=== PATIENT | female | born 1970 | race American Indian/Alaskan Native ===

== ENCOUNTER 2017-02-20 14:50 | Emergency (ER) | payer SELFPAY ==
[2017-02-20 15:22] VITALS: BP 129/88
--- NOTE | 2017-02-20 16:06 | Emergency Department Report ---
Chief Complaint: Abdominal Pain Stated Complaint: ABDOMINAL PAIN, VOMITING,NO BILE MOVEMENT Time Seen by Provider: 02/20/17 16:06 - HPI History of Present Illness: Patient here complaining of abdominal pain to her abdomen she said it's mostly to her upper abdomen but she is having generalized pain that is 10 out of 10 and feels crampy and she feels very uncomfortable. Patient states that she vomits every day and she is having nausea. She says she was seen at [facility] last Monday which is 6 days ago for abdominal pain and had not have a bowel movement. She says she had a CT scan of the abdomen and pelvis that she was given stool softeners. She said she takes Ultram so they gave her to stool softener for that. She says she has not had a bowel movement for 5 days because of constipation. She says she has not had any relief with the stool softener she said she had a bowel movement the day when she got stool softener with says though that she hasn't had any denies any urinary burning frequency or urgency. Denies any fever or chills. Patient also said that they told her that she has a urinary tract infection and gave her ciprofloxacin and she has not take most of the ciprofloxacin because she said she cannot keep it down she has a bottle with the ciprofloxacin and most of the pills are in the bottle. - ROS Review of Systems: All systems are negative unless stated in HPI above - Exam Vital Signs: Vital Signs 02/20/17 15:16 Temperature 98.1 F Pulse Rate 96 H Respiratory 16 Rate Blood Pressure 129/88 O2 Sat by Pulse 100 Oximetry Physical Exam: Gen.: This is a 46-year-old female seeing and rubbing her abdomen with facial grimacing. She is nontoxic. Patient is morbidly obese Abdomen: Patient with very large abdomen which is adipose tissue. Tender to palpate to mid upper abdominal quadrants, audible bowel sounds. No rigidity. MSE screening note: Focused history and physical exam performed. Due to findings the following was ordered: ED Medical Decision Making - Medical Decision Making MDM: Patient screened by provider in triage area. Appropriate protocol initiated and patient to be seen in main ED by Dr. [place] Disposition for MSE Condition: Stable Instructions: Abdominal Pain (ED)
[2017-02-20 17:06] LABS: Alanine Aminotransferase 80 units/L (7-56); Albumin 3.7 g/dL (3.9-5); Albumin/Globulin Ratio 0.6 %; Alkaline Phosphatase 81 units/L (35-129); Anion Gap 16 mmol/L; BUN/Creatinine Ratio 23; Blood Urea Nitrogen 16 mg/dL (7-17); Calcium 8.8 mg/dL (8.4-10.2); Carbon Dioxide 26 mmol/L (22-30); Chloride 96.3 mmol/L (98-107); Glucose 127 mg/dL (65-100); Lipase 62 units/L (13-60); Potassium 3.7 mmol/L (3.6-5.0); Sodium 135 mmol/L (137-145)
[2017-02-20 17:11] LABS: Basophils % (Auto) 0.3 % (0.0-1.8); Eosinophils % (Auto) 0.7 % (0.0-4.3); Hematocrit 41.1 % (30.3-42.9); Hemoglobin 13.9 gm/dl (10.1-14.3); Mean Corpuscular HGB Conc 34 % (30-34); Mean Corpuscular Hemoglobin 31 pg (28-32); Mean Corpuscular Volume 91 fl (79-97); Platelet Count 380 K/mm3 (140-440); Red Blood Count 4.54 M/mm3 (3.65-5.03); Red Cell Distribution Width 12.9 % (13.2-15.2); White Blood Count 6.5 K/mm3 (4.5-11.0)
[2017-02-20 17:28] LABS: Bilirubin,Urine NEG (Negative); Blood,Urine SM (Negative); Ketones,Urine 20 mg/dL (Negative); Leukocyte Esterase,Urine NEG (Negative); Mucus,Urine 3+ /HPF; Nitrite,Urine NEG (Negative)
--- NOTE | 2017-02-20 20:16 | XRay Report ---
FINAL REPORT EXAM: XR ABDOMEN 2V HISTORY: abdominal pain, constipation upt ordered TECHNIQUE: Supine and erect views of the abdomen PRIORS: None. FINDINGS: There are numerous distended loops of small bowel containing air-fluid levels. Very little bowel gas is seen in the colon. Findings are highly suspicious for small bowel obstruction. No free air is identified. Soft tissues have no evidence for mass shadows or calcifications. The bony structures are intact. IMPRESSION: Findings highly suspicious for small bowel obstruction.
== END 2017-02-20 20:25 | disposition left against medical advice (07) ==
LOC: ED 14:50
DX: Z53.21 Procedure and treatment not carried out due to patient leaving prior to being seen by health care provider (principal)
CPT/HCPCS: 36415; 74020; 80053; 81001; 83690; 84703; 85025

== ENCOUNTER 2018-07-11 05:28 | Emergency (ER) | payer SELFPAY ==
[2018-07-11] MEDS ORDERED: MORPHINE IV ONE (07:00)
--- NOTE | 2018-07-11 07:04 | XRay Report ---
PROCEDURE: XR ANKLE 2V LT TECHNIQUE: AP and lateral views of the left ankle were obtained. HISTORY: broken ankle, ankle pain COMPARISONS: None FINDINGS: There is a trimalleolar fracture dislocation of the ankle. There is an obliquely oriented fracture of the distal fibula with lateral angulation and moderate displacement of the distal fracture fragment. There is an acute transverse fracture of the medial malleolus. The distal tibia is displaced medial relative to the fragment. There is also an obliquely oriented fracture fragment from the posterior la teral aspect of the distal tibia. The talar dome is displaced laterally relative to the distal tibial articular surface. There is soft tissue swelling around the ankle joint. There is a small plantar ca lcaneal spur. IMPRESSION: Trimalleolar fracture dislocation of the ankle.. This document is electronically signed by Matt Mariee MD., July 11 2018 07:01:49 AM ET
--- NOTE | 2018-07-11 07:07 | Emergency Department Report ---
HPI - General Chief Complaint: Extremity Injury, Lower Time Seen by Provider: 07/11/18 06:36 - HPI HPI: 48-year-old -[place] female presents to the emergency department via EMS from home with complaint of a probable left ankle fracture. She was getting dressed this morning and was putting on her pants on her right foot started slipping and she fell down onto her left leg, which had folded underneath her. She presents with swelling and an obvious deformity. She was given fentanyl in route and placed in a rudimentary splint with EMS. She has a past medical history of HIV, hepatitis C, colostomy secondary to a previous colon obstruction. ED Past Medical Hx - Past Medical History Hx HIV: Yes Additional medical history: Abd pain, Constipation, Colostomy bag, Hep-C - Surgical History Hx Cholecystectomy: Yes Additional Surgical History: Tubaligation - Social History Smoking Status: Never Smoker Substance Use Type: None - Medications Home Medications: Home Medications Medication Instructions Recorded Confirmed Last Taken Type oxyCODONE /ACETAMINOPHEN [Percocet 1 tab PO Q6HR PRN #16 tablet 07/11/18 Unknown Rx 5/325] ED Review of Systems ROS: Stated complaint: LEFT ANKLE BROKN Other details as noted in HPI Comment: All other systems reviewed and negative Constitutional: denies: chills, fever Eyes: denies: eye pain, vision change ENT: denies: ear pain, throat pain Respiratory: denies: cough, shortness of breath Cardiovascular: denies: chest pain, palpitations Gastrointestinal: denies: abdominal pain, vomiting Genitourinary: denies: dysuria, frequency Musculoskeletal: joint swelling, arthralgia. denies: back pain Skin: denies: rash, lesions Neurological: denies: headache, weakness Physical Exam - Physical Exam Vital Signs: Vital Signs 07/11/18 07/11/18 05:44 06:39 Temperature 98.7 F Pulse Rate 98 H 68 Respiratory 16 16 Rate Blood Pressure 137/76 115/60 [Left] O2 Sat by Pulse 98 100 Oximetry Physical Exam: GENERAL: The patient is well-developed well-nourished. HEENT: Normocephalic. Atraumatic. Patient has moist mucous membranes. EYES: Extraocular motions are intact. Pupils are equal and reactive to light bilaterally. NECK: Supple. Trachea is midline. CHEST/LUNGS: Clear to auscultation. There is no respiratory distress noted. HEART/CARDIOVASCULAR: Regular. There is no tachycardia. There is no obvious murmur. ABDOMEN: Abdomen is soft, nontender. Patient has normal bowel sounds. Obese habitus. SKIN: There is nonpitting swelling of the distal left lower extremity at the ankle and foot. NEURO: The patient is awake, alert, and oriented. The patient is cooperative. The patient has no focal neurologic deficits. The patient has normal speech. MUSCULOSKELETAL: There is tenderness to palpation of the circumferential left ankle. There is an obvious deformity with the left foot being laterally displaced and angulated. Pedal pulses intact. Decreased range of motion of the left foot and ankle secondary to pain. ED Course Vital Signs 07/11/18 07/11/18 05:44 06:39 Temperature 98.7 F Pulse Rate 98 H 68 Respiratory 16 16 Rate Blood Pressure 137/76 115/60 [Left] O2 Sat by Pulse 98 100 Oximetry - Consultations Consultation #1: 07/11/18 13:09 The orthopedist on-call, Dr. Rice, was contacted about the patient's trimalleolar fracture and ankle dislocation. He was nearby the emergency department and came and took a look at the patient's x-rays. Once the ankle dislocation was reduced and the ankle was splinted, he felt that the patient was safe for outpatient follow-up. - Moderate Sedation Indications: fracture/dislocation redu ASA Class: I Mallampati Airway Score: 2 Preparation: shelter monitor applied, pulse oximeter, capnometry used, supplemental O2 applied, suction/airway equipment at bedside, IV secured Ketamine: IV Ketamine Dose: 70 IV Propofol Dose (mgs): 40 Complications: none Patient Tolerated Procedure: well - Orthopedic Joint Reduction Joint #1 Consent Obtained: verbal consent Time Out Performed: Yes Side: left Joint Reduction Location: ankle Analgesia: moderate sedation Shoulder Technique Used (if applicable): traction/counter-traction Post-Reduction Neuro Exam: intact Post-Reduction Vascular Exam: intact Post Reduction X-Ray Obtained: Yes Post Reduction X-Ray Results: reduced Splint Applied: Yes Patient Tolerated Procedure: well ED Medical Decision Making - Medical Decision Making Patient slipped while trying to get dressed this morning and her leg folded underneath her and caused a trimalleolar fracture and there was an ankle dislocation. Using moderate sedation, I was able to reduce the ankle dislocation and better align the fractures. The patient was placed in a Squire splint. Vital signs stable throughout ED course. She was monitored for a while after the procedures were done until she came back out of the moderate sedation and back to her normal mentation and baseline status. The patient was given crutches and will be nonweightbearing until follow-up with the orthopedist. She was given pain medication in the orthopedic referrals. She will return to the ER with any worsening symptoms or any acute distress. - Differential Diagnosis ankle fracture, dislocation, sprain, strain, contusion Critical Care Time: No Critical care attestation.: If time is entered above; I have spent that time in minutes in the direct care of this critically ill patient, excluding procedure time. ED Disposition Clinical Impression: Trimalleolar fracture of ankle, closed Qualifiers: Encounter type: initial encounter Laterality: left Qualified Code(s): S82.852A - Displaced trimalleolar fracture of left lower leg, initial encounter for closed fracture Ankle dislocation Qualifiers: Encounter type: initial encounter Laterality: left Qualified Code(s): S93.05XA - Dislocation of left ankle joint, initial encounter Disposition: TO HOME OR SELFCARE Is pt being admited?: No Condition: Stable Instructions: Ankle Fracture (ED), Moderate Sedation (ED), Ankle Dislocation (ED) Additional Instructions: Please follow up with the orthopedist regarding your ankle fracture. Remaining in the splint and nonweightbearing with the crutches until follow-up. Return to the emergency Department with any worsening of your symptoms or any acute distress. Prescriptions: oxyCODONE /ACETAMINOPHEN [Percocet 5/325] 1 tab PO Q6HR PRN #16 tablet PRN Reason: Pain Referrals: [facility] [Other] - 3-5 Days FIDEL RICE MD [Staff Physician] - 3-5 Days Time of Disposition: 11:23
[2018-07-11] MEDS ORDERED: NACL 0.9% 1000 ML 1,000 ML IV ONE (07:43)
[2018-07-11] MEDS ORDERED: KETALAR IV ONE (07:43)
[2018-07-11] MEDS ORDERED: DIPRIVAN 10 MG/ML IV ONE (07:44)
[2018-07-11] MEDS ORDERED: KETAMINE HCL IV ONE (09:00)
[2018-07-11] MEDS ORDERED: ZOFRAN ONE (09:38)
[2018-07-11] MEDS ORDERED: ZOFRAN IV ONE (09:40)
--- NOTE | 2018-07-11 09:40 | XRay Report ---
LEFT ANKLE, 3 views: History: Postreduction for dislocation of talus-tibia. Compared to the exam at 0638 hours. A splint has been applied. The lateral dislocation at the left tibiotalar joint has been reduced. Alignment is anatomic at the joint space. Oblique fracture of the distal fibula, vertical fracture of the posterior tibia, and transverse fracture of the medial malleolus have also been reduced and are in near anatomic alignment. Diffuse soft tissue swelling is noted. IMPRESSION: Successful reduction of the fracture dislocation.
[2018-07-11] MEDS ORDERED: PERCOCET 5/325 PO ONE (11:01)
[2018-07-11 12:41] VITALS: BP 122/72
== END 2018-07-11 12:35 | disposition home or self-care (01) ==
LOC: EDBD 05:28 → ED 05:28
DX: S82.852A Displaced trimalleolar fracture of left lower leg, initial encounter for closed fracture (principal); S93.05XA Dislocation of left ankle joint, initial encounter; Z98.51 Tubal ligation status; W01.0XXA Fall on same level from slipping, tripping and stumbling without subsequent striking against object, initial encounter; Y93.89 Activity, other specified; Y92.89 Other specified places as the place of occurrence of the external cause; Y99.8 Other external cause status
CPT/HCPCS: 27818; 73600; 73610; 96374; 96375; 99284; J2270; J2405; J2704